=== PATIENT | female | born 1975 | race Caucasian/White ===

== ENCOUNTER → 2019-11-20 | Outpatient (CLI) | payer BC ==
[2019-11-20 15:21] VITALS: BP 136/87; PULSE 105; RESP 16; TEMP 99.1; BMI 39.3
[2019-11-20 17:06] LABS: HCT 45.8 % (34.0-46.0); HGB 14.9 gm/dL (11.4-16.0); MCH 28.8 pg (25.0-35.0); MCHC 32.6 g/dL (31.0-37.0); MCV 88.3 fL (80.0-100.0); Mean Platelet Volume 8.3; Platelet Count 321 k/uL (150-450); RBC 5.19 m/uL (3.80-5.40); RDW 12.7 % (11.5-15.5); WBC 11.9 k/uL (3.8-10.6)
[2019-11-21 00:57] LABS: Albumin 4.6 g/dL (3.80-4.90); Albumin/Globulin Ratio 2.19 (1.60-3.17); Anion Gap 9.6 mmol/L (4.00-12.00); BUN/Creat Ratio 21.43 Ratio (12.00-20.00); Carbon Dioxide 26.4 mmol/L (21.6-31.8); Globulin 2.1 g/dL (1.6-3.3); Non-African American GFR(CKD) 106.1 (60.0-200.0); Potassium 3.7 mmol/L (3.5-5.5); Total Bilirubin 0.3 mg/dL (0.3-1.2); Total Protein 6.7 g/dL (6.2-8.2)
[2019-11-21 01:08] LABS: Folate, Serum 8.9 ng/mL
--- NOTE | 2019-11-27 14:21 | P.HPBAR ---
Bariatric H&P - History & Physicial H&P Date: 11/20/19 History & Physicial: Visit/CC: initial visit Patient initial contact: Initial weight: 104.78 kg Initial weight in pounds: 231.00 Height: 5 ft 4.25 in Initial BMI: 39.3 Last weight: Current weight: 104.78 kg Current weight in pounds: 231.00 Current BMI: 39.3 [place] body weight (based on NIH guidelines): 54.998 kg Excess body weight loss: 0.0% The patient is a 44 year-old F who presents for Bariatric Assessment. Patient presents today for new patient consultation. She is morbidly obese. Her BMI is 40. She has had lifetime problems obesity Past Medical History Past Medical History: No Reported History History of Any Multi-Drug Resistant Organisms: None Reported Past Surgical History: Section, Tubal Ligation, Uterine Ablation Additional Past Surgical History / Comment(s): x1 (2004) Past Anesthesia/Blood Transfusion Reactions: No Reported Reaction Additional Past Anesthesia/Blood Transfusion Reaction / Comm: No blood transfusion to date Past Psychological History: ADD/ADHD, Depression Additional Psychological History / Comment(s): Takes Adderall 30mg and Prozac 40mg daily Smoking Status: Never smoker Past Alcohol Use History: None Reported Past Drug Use History: None Reported Surgical - Exam Vital Signs Temp Pulse Resp BP 99.1 F 105 H 16 136/87 11/20/19 15:17 11/20/19 15:17 11/20/19 15:17 11/20/19 15:17 - General well developed, well nourished, no distress - Eyes PERRL - ENT normal pinna - Neck no masses - Respiratory normal expansion - Cardiovascular Rhythm: regular - Abdomen Abdomen: soft, non tender Results - Labs 11/20/19 16:19 11/20/19 16:19 Bariatric Assessment & Plan Plan: Morbid obesity, BMI 39. We went over the risks and benefits of sleeve gastrectomy. I discussed the risk of possible gastric staple line disruption, bleeding or scarring. Patient was scheduled for EGD. She'll follow-up after this is performed. Bariatric Checklist Checklist: Plan: Checklist: EGD: 1. Hiatal hernia: 2. H. Pylori: HgbA1c: Vitamin D: Smoking: Never smoker Primary care physician referral: Mary Ann Psychiatry clearance: Cardiology clearance: Sleep study: Diet journal: VTE risk score: VTE risk level: Rehab needs at discharge:
== END | disposition home or self-care (01) ==
LOC: BARWHC3 14:50
PROVIDERS: ATTEND Surgery
DX: E66.01 Morbid (severe) obesity due to excess calories (principal); Z68.39 Body mass index [BMI] 39.0-39.9, adult; E44.0 Moderate protein-calorie malnutrition; Z98.51 Tubal ligation status; Z98.890 Other specified postprocedural states
CPT/HCPCS: 80053; 82306; 82607; 82746; 84425; 84443; 85027; 93005; 99201

== ENCOUNTER 2019-12-06 07:45 | Day surgery (SDC) | payer BC ==
[2019-12-05 11:34] VITALS: BMI 39.4
[~2019-12-06 07:45] MED LIST: LACTATED RINGERS 1,000 ML IV SCH; LIDOCAINE 1% 20 ML VIAL (10MG/ML) FOR IV START INTRADERMA PRN
[2019-12-06 08:25] VITALS: TEMP 97
[2019-12-06] MEDS ORDERED: PROPOFOL 10 MG/ML 20 ML VIAL IV ONE (09:14)
[2019-12-06] MEDS ORDERED: LIDOCAINE 1% INJ 10MG/ML (20 ML MDV) ONE (09:14)
--- NOTE | 2019-12-06 09:24 | P.GSHP ---
History of Present Illness H&P Date: 12/06/19 Chief Complaint: Morbid obesity, BMI 40 This a 44-year-old female who is undergoing workup for sleeve gastrectomy. Patient has had issues with morbid obesity. Her BMI is 40. She is also issues. With GERD. Past Medical History Past Medical History: No Reported History Additional Past Medical History / Comment(s): states irregular heart beat, back problems, Hx Uti's, migraines., elevated thyroid test-has not spoken with Dr. mondragon. History of Any Multi-Drug Resistant Organisms: None Reported Past Surgical History: Section, Tubal Ligation, Uterine Ablation Additional Past Surgical History / Comment(s): x1 (2004) Past Anesthesia/Blood Transfusion Reactions: No Reported Reaction, Motion Sickness Additional Past Anesthesia/Blood Transfusion Reaction / Comment(s): . Past Psychological History: ADD/ADHD, Anxiety, Depression Additional Psychological History / Comment(s): . Smoking Status: Never smoker Past Alcohol Use History: Rare Past Drug Use History: None Reported - Past Family History Mother Family Medical History: No Reported History Medications and Allergies Home Medications Medication Instructions Recorded Confirmed Type Dextroamphetamine/Amphetamine 30 mg PO QAM 09/10/15 12/06/19 History [Adderall] FLUoxetine HCL [PROzac] 40 mg PO DAILY 11/20/19 12/06/19 History Omeprazole [PriLOSEC] 40 mg PO DIRECTED PRN 11/20/19 12/06/19 History Acetaminophen [Tylenol] 650 mg PO DIRECTED PRN 12/05/19 12/06/19 History Dextroamphetamine/Amphetamine 30 mg PO PC-LUNCH PRN 12/05/19 12/06/19 History [Adderall] Allergies Allergy/AdvReac Type Severity Reaction Status Date / Time bupropion [From Contrave] Allergy Rash/Hives Verified 12/06/19 08:09 bupropion HCl Allergy Rash/Hives Verified 12/06/19 08:09 [From Wellbutrin] naltrexone [From Contrave] Allergy Rash/Hives Verified 12/06/19 08:09 Surgical - Exam Vital Signs Temp Pulse Resp BP Pulse Ox 97 F L 71 16 124/71 99 12/06/19 08:24 12/06/19 08:24 12/06/19 08:24 12/06/19 08:24 12/06/19 08:24 - General well developed, well nourished, no distress - Eyes PERRL - ENT normal pinna - Neck no masses - Respiratory normal expansion - Cardiovascular Rhythm: regular - Abdomen Abdomen: soft, non tender Assessment and Plan Assessment: GERD. We'll perform EGD.
--- NOTE | 2019-12-06 09:39 | P.OP ---
Date of Procedure: 12/06/19 Preoperative Diagnosis: Morbid obesity Postoperative Diagnosis: Antral gastritis Hiatal hernia Mild esophagitis Procedure(s) Performed: EGD Anesthesia: MAC Surgeon: Corey Campos Pathology: other (Antrum, esophagus) Condition: stable Disposition: PACU Description of Procedure: The patient's placed on the endoscopy table in the lateral position. She received IV sedation. The gastroscope placed oropharynx and passed in the esophagus and into the stomach. Scope was then placed through the pylorus. The first and second portion of the duodenum appeared normal. Scope was then brought back the antrum and this appeared minimally inflamed. Biopsies performed. Scope was unretroflexed and the remainder of the stomach appeared normal. There was a small hiatal hernia. The GE junction was at 28 cm. The distal esophagus appeared mildly inflamed a biopsies performed. The proximal esophagus appeared normal. Scope was then removed from the patient.
[2019-12-06 10:16] VITALS: BP 131/91; PULSE 64; RESP 18
== END 2019-12-06 10:49 | disposition home or self-care (01) ==
LOC: ORWHC2ENDO 07:45
PROVIDERS: ATTEND Surgery
DX: K21.0 Gastro-esophageal reflux disease with esophagitis (principal); K44.9 Diaphragmatic hernia without obstruction or gangrene; E66.01 Morbid (severe) obesity due to excess calories; Z68.41 Body mass index [BMI] 40.0-44.9, adult; G43.109 Migraine with aura, not intractable, without status migrainosus; Z87.440 Personal history of urinary (tract) infections; Z98.51 Tubal ligation status; Z98.890 Other specified postprocedural states; F90.9 Attention-deficit hyperactivity disorder, unspecified type; F41.9 Anxiety disorder, unspecified; F32.9 Major depressive disorder, single episode, unspecified; Z79.899 Other long term (current) drug therapy; Z88.8 Allergy status to other drugs, medicaments and biological substances
CPT/HCPCS: 81025; 88305; 43239; J2001; J2704

== ENCOUNTER → 2019-12-18 | Outpatient (CLI) | payer BC ==
[2019-12-18 16:10] VITALS: BP 145/90; PULSE 91; RESP 16; TEMP 98.4; BMI 39.5
--- NOTE | 2019-12-19 12:32 | P.HPBAR ---
Bariatric H&P - History & Physicial H&P Date: 12/18/19 History & Physicial: Visit/CC: EGD F/U Patient initial contact: Initial weight: 104.78 kg Initial weight in pounds: 231.00 Height: 5 ft 4.25 in Initial BMI: 39.3 Last weight: Current weight: 105.233 kg Current weight in pounds: 232.00 Current BMI: 39.5 [place] body weight (based on NIH guidelines): 54.998 kg Excess body weight loss: The patient is a 44 year-old F who presents for Bariatric Assessment. Patient presents today for presurgical consultation follow-up. She underwent recent EGD. Her weight has been stable. She's more obesity BMI 39. Past Medical History Past Medical History: No Reported History Additional Past Medical History / Comment(s): states irregular heart beat, back problems, Hx Uti's, migraines., elevated thyroid test-has not spoken with Dr. mondragon. History of Any Multi-Drug Resistant Organisms: None Reported Past Surgical History: Section, Tubal Ligation, Uterine Ablation Additional Past Surgical History / Comment(s): x1 (2004) Past Anesthesia/Blood Transfusion Reactions: No Reported Reaction, Motion Sickness Additional Past Anesthesia/Blood Transfusion Reaction / Comm: . Past Psychological History: ADD/ADHD, Anxiety, Depression Additional Psychological History / Comment(s): . Smoking Status: Never smoker Past Alcohol Use History: Rare Past Drug Use History: None Reported - Past Family History Mother Family Medical History: No Reported History Father Family Medical History: CVA/TIA, Myocardial Infarction ([place]) Surgical - Exam Vital Signs Temp Pulse Resp BP 98.4 F 91 16 145/90 12/18/19 16:08 12/18/19 16:08 12/18/19 16:08 12/18/19 16:08 - General well developed, well nourished, no distress - Eyes PERRL - ENT normal pinna - Neck no masses - Respiratory normal expansion - Cardiovascular Rhythm: regular - Abdomen Abdomen: soft, non tender Bariatric Assessment & Plan Plan: RBC, BMI 39. Patient has a good understanding of sleeve gastrectomy. Went over the risks and benefits of surgery were discussed staple line disruption bleeding or scarring. Went over risk of GERD. Patient will be scheduled for sleeve gastrectomy once her authorizations complete. Bariatric Checklist Checklist: Plan: Checklist: EGD: 1. Hiatal hernia: 2. H. Pylori: HgbA1c: Vitamin D: Smoking: Never smoker Primary care physician referral: Mary Ann Psychiatry clearance: Cardiology clearance: Sleep study: Diet journal: VTE risk score: VTE risk level: Rehab needs at discharge:
== END | disposition home or self-care (01) ==
LOC: BARWHC3 14:53
PROVIDERS: ATTEND Surgery
DX: Z48.816 Encounter for surgical aftercare following surgery on the genitourinary system (principal); Z98.890 Other specified postprocedural states
CPT/HCPCS: 99211

== ENCOUNTER → 2020-06-24 | Outpatient (CLI) | payer BC ==
[2020-06-24 12:53] VITALS: BMI 41.3
== END | disposition home or self-care (01) ==
LOC: BARWHC3 08:42
PROVIDERS: ATTEND Surgery
DX: E66.01 Morbid (severe) obesity due to excess calories (principal); Z71.3 Dietary counseling and surveillance; Z68.41 Body mass index [BMI] 40.0-44.9, adult
CPT/HCPCS: 97804

== ENCOUNTER → 2021-01-06 | Outpatient (CLI) | payer BC ==
[2021-01-06 15:21] LABS: Basophils # (A) 0.1 k/uL (0-0.2); Basophils % (A) 1 %; Eosinophils # (A) 0.3 k/uL (0-0.7); Eosinophils % (A) 5 %; HCT 45.1 % (34.0-46.0); HGB 15.6 gm/dL (11.4-16.0); Lymphocytes # (A) 1.5 k/uL (1.0-4.8); Lymphocytes % (A) 20 %; MCH 28.9 pg (25.0-35.0); MCHC 34.6 g/dL (31.0-37.0); MCV 83.6 fL (80.0-100.0); Mean Platelet Volume 8.1; Monocytes # (A) 0.6 k/uL (0-1.0); Monocytes % (A) 7 %; Neutrophils % (A) 66 %; Platelet Count 348 k/uL (150-450); RBC 5.39 m/uL (3.80-5.40); RDW 12.4 % (11.5-15.5); WBC 7.6 k/uL (3.8-10.6)
[2021-01-06 15:36] LABS: ALT 23 U/L (4-34); AST 23 U/L (14-36); African American GFR (CKD) >90 (>60 ml/min/1.73 sqM); Albumin 4.2 g/dL (3.5-5.0); Alkaline Phosphatase 65 U/L (38-126); Anion Gap 8 mmol/L; Blood Urea Nitrogen 14 mg/dL (7-17); Calcium 9.1 mg/dL (8.4-10.2); Carbon Dioxide 30 mmol/L (22-30); Chloride 100 mmol/L (98-107); Glucose 99 mg/dL (74-99); Non-African American GFR(CKD) 89 (>60 ml/min/1.73 sqM); Potassium 4.3 mmol/L (3.5-5.1); Sodium 138 mmol/L (137-145); Total Bilirubin 0.7 mg/dL (0.2-1.3); Total Protein 7.6 g/dL (6.3-8.2)
== END | disposition home or self-care (01) ==
LOC: LABPAT 14:17
PROVIDERS: ATTEND Surgery
DX: Z01.818 Encounter for other preprocedural examination (principal)
CPT/HCPCS: 36415; 80053; 85025; 93005

== ENCOUNTER → 2021-01-06 | Outpatient (CLI) | payer BC ==
[2021-01-06 14:12] VITALS: BP 134/91; PULSE 92; RESP 18; TEMP 98.5; BMI 39.1
--- NOTE | 2021-01-06 16:11 | P.HPBAR ---
Bariatric H&P - History & Physicial H&P Date: 01/06/21 History & Physicial: Visit/CC: presurgical visit Patient initial contact: Initial weight: 104.78 kg Initial weight in pounds: 231.00 Height: 5 ft 4.25 in Initial BMI: 39.3 Last weight: Current weight: 104.145 kg Current weight in pounds: 229.60 Current BMI: 39.1 [place] body weight (based on NIH guidelines): 54.998 kg Excess body weight loss: 1.2% The patient is a 45 year-old F who presents for Bariatric Assessment.patient presents for presurgical consultation. She is morbidly obese. Her BMI is 39. She is scheduled for sleeve gastrectomy next week. Past Medical History Past Medical History: No Reported History Additional Past Medical History / Comment(s): states irregular heart beat, back problems, Hx Uti's, migraines., elevated thyroid test-has not spoken with Dr. mondragon. History of Any Multi-Drug Resistant Organisms: None Reported Past Surgical History: Section, Tubal Ligation, Uterine Ablation Additional Past Surgical History / Comment(s): x1 (2004) Past Anesthesia/Blood Transfusion Reactions: No Reported Reaction, Motion Sickne ss Additional Past Anesthesia/Blood Transfusion Reaction / Comm: . Past Psychological History: ADD/ADHD, Anxiety, Depression Additional Psychological History / Comment(s): . Smoking Status: Unknown if ever smoked Past Alcohol Use History: Rare Past Drug Use History: None Reported - Past Family History Mother Family Medical History: No Reported History Father Family Medical History: CVA/TIA, Myocardial Infarction ([place]) Surgical - Exam Vital Signs Temp Pulse Resp BP 98.5 F 92 18 134/91 01/06/21 13:53 01/06/21 13:53 01/06/21 13:53 01/06/21 13:53 - General well developed, well nourished, no distress - Eyes PERRL - ENT normal pinna - Neck no masses - Respiratory normal expansion - Cardiovascular Rhythm: regular - Abdomen Abdomen: soft, non tender Bariatric Assessment & Plan Plan: morbid obesity patient will be scheduled for sleeve gastrectomy next week. She is Understanding of the sleeve gastrectomy she is aware of the risk of gastric injury such as perforation bleeding scar. Bariatric Checklist Checklist: Plan: Checklist: EGD: 1. Hiatal hernia: 2. H. Pylori: HgbA1c: Vitamin D: Smoking: Never smoker Primary care physician referral: Mary Ann Psychiatry clearance: Cardiology clearance: Sleep study: Diet journal: VTE risk score: VTE risk level: Rehab needs at discharge:
== END ==
LOC: BARWHC3 13:47
PROVIDERS: ATTEND Surgery
DX: E66.01 Morbid (severe) obesity due to excess calories (principal); F32.9 Major depressive disorder, single episode, unspecified; F90.9 Attention-deficit hyperactivity disorder, unspecified type; Z79.899 Other long term (current) drug therapy; Z68.39 Body mass index [BMI] 39.0-39.9, adult
CPT/HCPCS: 99211

== ENCOUNTER 2021-01-13 07:03 | Inpatient (IN) | payer BC ==
[~2021-01-13 07:03] MED LIST changes: +DEXAMETHASONE SOD PHOSPHATE 4 MG/ML 1 ML VIAL IV ONE; +HYDROmorphone 0.5 MG/0.5 ML SYRINGE IVP PRN; -LACTATED RINGERS 1,000 ML IV SCH; -LIDOCAINE 1% 20 ML VIAL (10MG/ML) FOR IV START INTRADERMA PRN; +MIDAZOLAM 2 MG/2 ML VIAL IV PRN; +ONDANSETRON 4 MG/2 ML VIAL IVP ONE
[2021-01-13] MEDS: LACTATED RINGERS 1,000 ML IV SCH (07:50)
[2021-01-13] MEDS ORDERED: LIDOCAINE 1% (10MG/ML) FOR IV START INTRADERMA ONE (07:50)
[2021-01-13] MEDS: ENOXAPARIN 30 MG/0.3 ML SYRINGE SQ PRN ×3 (07:51→09:00)
[2021-01-13] MEDS ORDERED: LIDOCAINE 1% INJ 10MG/ML (20 ML MDV) ONE ×3 (08:13→08:57)
--- NOTE | 2021-01-13 08:35 | P.GSHP ---
History of Present Illness H&P Date: 01/13/21 Chief Complaint: Morbid obesity This a 45-year-old female who presents today for laparoscopic sleeve gastrectomy. Patient's had issues with morbid obesity. Her BMI is 40. Patient weighs 104 kg. She is aware the risks of surgery including conversion to the open procedure and injury to the stomach liver spleen and issues with gastric sleeve disruption, bleeding and scarring. Past Medical History Past Medical History: Cancer, GERD/Reflux, Osteoarthritis (OA), Pneumonia Additional Past Medical History / Comment(s): states irregular heart beat, back problems, Hx Uti's, migraines., hiatal hernia, irregular bowel movents, hx gestational diabetic, cervical cancer, states she had postivie COVID test 12/20/20. states she did quarantine and is symptom free History of Any Multi-Drug Resistant Organisms: None Reported Past Surgical History: Section, Tubal Ligation, Uterine Ablation Additional Past Surgical History / Comment(s): .. Past Anesthesia/Blood Transfusion Reactions: Motion Sickness Additional Past Anesthesia/Blood Transfusion Reaction / Comment(s): . Smoking Status: Never smoker - Past Family History Mother Family Medical History: No Reported History Father Family Medical History: CVA/TIA, Myocardial Infarction ([place]) Medications and Allergies Home Medications Medication Instructions Recorded Confirmed Type Dextroamphetamine/Amphetamine 30 mg PO BID PRN 09/10/15 01/09/21 History [Adderall] Acetaminophen [Tylenol] 650 mg PO DIRECTED PRN 12/05/19 01/09/21 History Pantoprazole Sodium [Protonix] 40 mg PO DAILY PRN 01/06/21 01/09/21 History FLUoxetine HCL [PROzac] 20 mg PO DAILY 01/09/21 01/09/21 History Allergies Allergy/AdvReac Type Severity Reaction Status Date / Time bupropion [From Contrave] Allergy Rash/Hives Verified 01/09/21 13:59 bupropion HCl Allergy Rash/Hives Verified 01/09/21 13:59 [From Wellbutrin] naltrexone [From Contrave] Allergy Rash/Hives Verified 01/09/21 13:59 Surgical - Exam Vital Signs Temp Pulse Resp BP Pulse Ox 98.6 F 75 20 116/61 96 01/13/21 07:48 01/13/21 07:48 01/13/21 07:48 01/13/21 07:48 01/13/21 07:48 - General well developed, well nourished, no distress - Eyes PERRL - ENT normal pinna - Neck no masses - Respiratory normal expansion - Cardiovascular Rhythm: regular - Abdomen Abdomen: soft, non tender Assessment and Plan Assessment: Orbit obesity, BMI 39 We'll perform laparoscopic sleeve gastrectomy
[2021-01-13] MEDS ORDERED: ROPIVACAINE 5 MG/ML 30 ML VIAL ONE (08:57)
[2021-01-13] MEDS ORDERED: SUCCINYLCHOLINE CHLORIDE 100 MG/5 ML SYR IV ONE (08:57)
[2021-01-13] MEDS ORDERED: ROCURONIUM 10 MG/ML (5 ML VIAL) IV ONE (08:57)
[2021-01-13] MEDS ORDERED: KETOROLAC 15 MG/ML 1 ML VIAL ONE (08:57)
[2021-01-13] MEDS ORDERED: KETAMINE 10 MG/ML 20 ML VIAL ONE (08:57)
[2021-01-13] MEDS ORDERED: PROPOFOL 10 MG/ML 20 ML VIAL IV ONE (08:57)
[2021-01-13] MEDS ORDERED: NEOSTIGMINE 1 MG/ML 10 ML VIAL ONE (08:57)
[2021-01-13] MEDS ORDERED: fentaNYL (PF) 50 MCG/ML 2 ML AMP ONE (08:57)
[2021-01-13] MEDS ORDERED: GLYCOPYRROLATE 0.2 MG/ML 2 ML VIAL ONE (08:57)
[2021-01-13] MEDS ORDERED: BUPIVACAINE (PF) 0.25% 30 ML VIAL SQ ONE (09:33)
[2021-01-13] MEDS ORDERED: LACTATED RINGERS 1,000 ML IV ONE ×2 (10:11→13:14)
--- NOTE | 2021-01-13 10:18 | P.OP ---
Date of Procedure: 01/13/21 Preoperative Diagnosis: Morbid obesity, BMI 39 Postoperative Diagnosis: Morbid obesity, BMI 39 Procedure(s) Performed: Laparoscopic sleeve gastrectomy Anesthesia: SUE Surgeon: Corey Campos Estimated Blood Loss (ml): 5 Pathology: other (Stomach) Condition: stable Disposition: PACU Description of Procedure: The patient was placed on the operating room table in the supine position. She received general anesthesia and then was placed in dorsal lithotomy position. Her abdomen was prepped and draped in sterile fashion. The skin incision sites were anesthetized 1% local Xylocaine. And then the skin was incised with an 11 blade in the left lateral position. Using a blade less trocar under direct visualization the peritoneal cavity was entered. The abdomen was insufflated and then a 5 mm laparoscope was placed into the peritoneal cavity. A 5 mm trocar was placed in the right epigastric, and right lateral position. A 15 mm trocar was placed in the supra-umbilical position and another 5 mm trocar was placed in the left lateral position. The left lateral lobe of the liver was retracted. The stomach was visualized. The greater curvature of the stomach was then dissected using the Harmonic scissors. The dissection occurred approximately 5 cm from the pylorus to the level of the left fannie. There was no hiatal hernia seen. At this point a 40-Faroese bougie dilator was placed the oropharynx and passed into the esophagus and into the stomach by the EVP. The sleeve gastrectomy was performed by using the powered echelon stapler with a seam guard buttress material. Sequential firings of the stapler were performed. The gastric remnant was then brought out through the 15 mm trocar site. The dilator was withdrawn. And a orogastric tube was replaced into the stomach. The stomach was insufflated with 200 mL of methylene blue normal saline. There was no evidence of extravasation. The abdomen was irrigated there is no bleeding seen. The Hussain-Baldemar device was used to close the 15 mm trocar with 0 Vicryl. Skin was closed with interrupted 3-0 Monocryl sutures once the trochars withdrawn. Dermabond dressing was applied. Patient was sent to recovery in stable condition.
[2021-01-13] MEDS ORDERED: HYOSCYAMINE ORAL DROPS 1.875 MG/15 ML BOTTLE PO PRN (10:19)
[2021-01-13] MEDS ORDERED: SIMETHICONE 40 MG/0.6 ML DROPS 2,000 MG/30 ML BOTTLE PO PRN (10:19)
[2021-01-13] MEDS ORDERED: diphenhydrAMINE 50 MG/ML 1 ML VIAL IVP PRN (10:19)
[2021-01-13] MEDS ORDERED: ONDANSETRON 4 MG/2 ML VIAL IVP PRN (10:19)
[2021-01-13] MEDS ORDERED: HYDROcodone/APAP 15 ML SOLUTION PO PRN (10:19)
[2021-01-13] MEDS ORDERED: NALOXONE 0.4 MG/ML 1 ML VIAL IV PRN (10:19)
[2021-01-13] MEDS: fentaNYL (PF) 50 MCG/ML 2 ML AMP IVP ONE ×2 (10:55→11:03)
[2021-01-13] MEDS: ALBUTEROL NEBULIZED 2.5 MG/3 ML INHALATION SCH ×3 (13:52→20:05)
[2021-01-13] MEDS: 0.9% NACL WITH KCL 20 MEQ/L 1,000 ML IV SCH ×3 (14:03→20:44)
[2021-01-13] MEDS: KETOROLAC 15 MG/ML 1 ML VIAL IVP SCH ×3 (14:17→23:14)
--- NOTE | 2021-01-13 14:17 | P.ANPRN ---
Procedure Note - Anesthesia - Nerve Block Performed Bilateral Erector Spinae Single Time Out Performed: Yes Date of Procedure: 01/13/21 Procedure Start Time: 08:28 Procedure Stop Time: 08:37 Location of Patient: PreOp Indication: Acute Post-Operative Pain, Requested by Surgeon Sedation Type: Sedate with meaningful contact maintained Preparation: Sterile Prep Position: Prone Needle Types: Pajunk Needle Gauge: 21 Ultrasound used to visualize needle placement: Yes Ultrasound used to observe medication spread: Yes Blood Aspirated: No Pain Paresthesia on Injection Noted: No Resistance on Injection: Normal Image Stored and Saved: Yes Events: Uneventful and Well Tolerated (ropi .5% 15cc plus xylo 1% 15cc at t10)
--- NOTE | 2021-01-13 16:50 | P.HPIM ---
<Tato Clifton - Last Filed: 01/13/21 16:27> History of Present Illness H&P Date: 01/13/21 History of presenting illness: Patient is a very pleasant 45-year-old female with a past medical history of depression, anxiety, GERD, and morbid obesity. She is currently admitted under Gen. surgery team with Dr. Campos and we have been consulted for continued medical managment throughout her admission. Upon assessment, pt sitting up in bed. She is currently status post laparoscopic surgery where she received a gastrectomy sleeve. Patient reports mild abdominal discomfort, bloating, and gas. Patient states she has been ambulatory without any difficulties status post surgical procedure, she is NPO with the exception of ice chips and reports she has been tolerating ice chips without any difficulties, and has urinating also without any difficulties. Patient denies having a bowel movement status post surgical procedure and denies passing any flatus at this time. She denies having any headache, lightheadedness, dizziness, chest pain, palpitations, shortness of breath, dyspnea with exertion, nausea, vomiting, or experiencing any numbness/tingling/weakness in extremities. Review of systems: Pertinent positives and negatives as discussed in HPI, a complete review of systems was performed and all other systems are negative. Physical exam: General: non toxic, no distress, appears at stated age Derm: warm, dry Head: atraumatic, normocephalic, symmetric Eyes: EOMI, no lid lag, anicteric sclera Mouth: no lip lesion, mucus membranes moist Cardiovascular: S1S2 reg, no murmur, positive posterior tibial pulse bilateral, Lungs: CTA bilateral, no rhonchi, no rales , no accessory muscle use Abdominal: Obese abdomen soft and distended, postsurgical laparoscopic incisions intact, well approximated, no signs of dehiscence, infection, or drainage. Ext: No gross muscle atrophy, no edema, no contractures Neuro: GCS 15. CN II-XII grossly intact, no focal neuro deficits Psych: Alert, oriented, pleasant and appropriate affect Plan of care: Depression and anxiety -Continue daily Prozac 20 mg each morning. GERD -Protonix 40 mg daily Morbid obesity -BMI 39.4 kg/m -Patient is status post laparoscopic surgery for placement of gastrectomy sleeve. -Pt to be provided with continued education and encourage on healthy diet choices and the importance of exercise. Status post laparoscopic surgery with placement of gastrectomy sleeve -Management per primary admitting general surgery team with Dr. Campos. -Pain management, DVT prophylaxis, diet and bowel protocol per primary admitting team. -Patient currently on DVT prophylaxis with Lovenox 40 mg twice a day along with ARVIND cornelius and SCDs. Thank you for allowing us to participate in the care of this pleasant patient. Do not hesitate to contact us with questions. We will follow along with general surgery team. Someone can be reached from the [facility] hospitalist group all hours of the day at [phone] or via [employer]. Past Medical History Past Medical History: Cancer, GERD/Reflux, Osteoarthritis (OA), Pneumonia Additional Past Medical History / Comment(s): states irregular heart beat, back problems, Hx Uti's, migraines., hiatal hernia, irregular bowel movents, hx gestational diabetic, cervical cancer, states she had postivie COVID test 12/20/20. states she did quarantine and is symptom free History of Any Multi-Drug Resistant Organisms: None Reported Past Surgical History: Section, Tubal Ligation, Uterine Ablation Additional Past Surgical History / Comment(s): .. Past Anesthesia/Blood Transfusion Reactions: Motion Sickness Additional Past Anesthesia/Blood Transfusion Reaction / Comment(s): . Smoking Status: Never smoker - Past Family History Mother Family Medical History: No Reported History Father Family Medical History: CVA/TIA, Myocardial Infarction ([place]) Medications and Allergies Home Medications Medication Instructions Recorded Confirmed Type Dextroamphetamine/Amphetamine 30 mg PO BID PRN 09/10/15 01/09/21 History [Adderall] Acetaminophen [Tylenol] 650 mg PO DIRECTED PRN 12/05/19 01/09/21 History Pantoprazole Sodium [Protonix] 40 mg PO DAILY PRN 01/06/21 01/09/21 History FLUoxetine HCL [PROzac] 20 mg PO DAILY 01/09/21 01/09/21 History Allergies Allergy/AdvReac Type Severity Reaction Status Date / Time bupropion [From Contrave] Allergy Rash/Hives Verified 01/09/21 13:59 bupropion HCl Allergy Rash/Hives Verified 01/09/21 13:59 [From Wellbutrin] naltrexone [From Contrave] Allergy Rash/Hives Verified 01/09/21 13:59 Physical Exam Vitals: Vital Signs Temp Pulse Pulse Pulse Resp BP BP 01/13/21 15:36 80 16 01/13/21 15:27 81 16 01/13/21 15:14 93 16 105/75 01/13/21 13:30 71 18 109/68 01/13/21 13:01 63 14 106/61 01/13/21 12:30 72 16 103/64 01/13/21 12:00 71 16 98/64 01/13/21 11:46 68 16 107/69 01/13/21 11:00 73 16 111/63 01/13/21 10:45 83 16 110/60 01/13/21 10:26 96.8 F L 95 12 133/77 01/13/21 08:45 70 20 108/60 01/13/21 07:48 98.6 F 75 20 116/61 Pulse Ox 01/13/21 15:36 01/13/21 15:27 98 01/13/21 15:14 96 01/13/21 13:30 100 01/13/21 13:01 100 01/13/21 12:30 99 01/13/21 12:00 98 01/13/21 11:46 99 01/13/21 11:00 99 01/13/21 10:45 98 01/13/21 10:26 100 01/13/21 08:45 99 01/13/21 07:48 96 Intake and Output 01/13/21 01/13/21 01/13/21 06:59 14:59 22:59 Intake Total 2250 Output Total 10 Balance 2240 Intake: IV 2250 Output: Estimated Blood Loss 10 Other: Weight 104.1 kg Thrombosis Risk Factor Assmnt - Choose All That Apply Each Factor Represents 1 point: Age 41-60 years, Obesity (BMI >25) Each Risk Factor Represents 2 Points: Laparoscopic surgery, Major surgery Thrombosis Risk Factor Assessment Total Risk Factor Score: 6 Thrombosis Risk Factor Assessment Level: High Risk <Shavon Polanco - Last Filed: 01/13/21 17:10> Physical Exam Osteopathic Statement: *. No significant issues noted on an osteopathic structural exam other than those noted in the History and Physical/Consult. Vitals: Vital Signs Temp Pulse Pulse Pulse Resp BP BP 01/13/21 15:36 80 16 01/13/21 15:27 81 16 01/13/21 15:14 93 16 105/75 01/13/21 13:30 71 18 109/68 01/13/21 13:01 63 14 106/61 01/13/21 12:30 72 16 103/64 01/13/21 12:00 71 16 98/64 01/13/21 11:46 68 16 107/69 01/13/21 11:00 73 16 111/63 01/13/21 10:45 83 16 110/60 01/13/21 10:26 96.8 F L 95 12 133/77 01/13/21 08:45 70 20 108/60 01/13/21 07:48 98.6 F 75 20 116/61 Pulse Ox 01/13/21 15:36 01/13/21 15:27 98 01/13/21 15:14 96 01/13/21 13:30 100 01/13/21 13:01 100 01/13/21 12:30 99 01/13/21 12:00 98 01/13/21 11:46 99 01/13/21 11:00 99 01/13/21 10:45 98 01/13/21 10:26 100 01/13/21 08:45 99 01/13/21 07:48 96 Intake and Output 01/13/21 01/13/21 01/13/21 06:59 14:59 22:59 Intake Total 2250 Output Total 10 Balance 2240 Intake: IV 2250 Output: Estimated Blood Loss 10 Other: Weight 104.1 kg Assessment and Plan Assessment: discussed the care with Tato Clifton NP and reviewed the findings and plan as documented in the note above. I did not physically speak with or examine the patient on this date.
[2021-01-13] MEDS: ENOXAPARIN 40 MG/0.4 ML SYRINGE SQ SCH (20:04)
[2021-01-13] MEDS: HYDROmorphone 1 MG/ML 1 ML SYRINGE IVP PRN (23:45)
[2021-01-14] MEDS: LACTATED RINGERS 1,000 ML IV SCH (05:00)
[2021-01-14] MEDS: KETOROLAC 15 MG/ML 1 ML VIAL IVP SCH ×2 (05:38→11:56)
[2021-01-14] MEDS: 0.9% NACL WITH KCL 20 MEQ/L 1,000 ML IV SCH (05:42)
[2021-01-14] MEDS ORDERED: 1: MVI, ADULT NO.4 WITH VIT K 10 ML, THIAMINE 100 MG, FOLIC ACID 1 MG, POTASSIUM CHLORID IV SCH ×6 (08:00)
[2021-01-14] MEDS: ENOXAPARIN 40 MG/0.4 ML SYRINGE SQ SCH (08:53)
[2021-01-14] MEDS: HYDROmorphone 1 MG/ML 1 ML SYRINGE IVP PRN (08:55)
[2021-01-14] MEDS ORDERED: PANTOPRAZOLE 40 MG/10 ML VIAL IV SCH (09:00)
[2021-01-14] MEDS ORDERED: FLUoxetine HCL 20 MG CAP PO SCH (09:00)
[2021-01-14] MEDS: ALBUTEROL NEBULIZED 2.5 MG/3 ML INHALATION SCH ×2 (09:00→13:05)
--- NOTE | 2021-01-14 09:01 | FL ---
EXAMINATION TYPE: FL UGI DATE OF EXAM: 01/14/2021 CLINICAL HISTORY: Status post gastric sleeve Contrast: Omnipaque 350 50 mL The patient ingested contrast without difficulty or delay. Noted are postsurgical changes of gastric sleeve. There is no evidence for leak or obstruction. Contrast is noted within the duodenum. IMPRESSION: Post-surgical change of gastric sleeve without evidence for obstruction or leak at this point in time.
[2021-01-14 09:59] LABS: Basophils # (A) 0.04 X 10*3/uL (0.00-0.10); Basophils % (A) 0.3 %; Eosinophils # (A) 0.01 X 10*3/uL (0.04-0.35); Eosinophils % (A) 0.1 %; HCT 31.1 % (37.2-46.3); HGB 9.9 g/dL (12.0-15.0); Lymphocytes # (A) 1.51 X 10*3/uL (0.90-5.00); Lymphocytes % (A) 12.5 %; MCH 28.3 pg (27.0-32.0); MCHC 31.8 g/dL (32.0-37.0); MCV 88.9 fL (80.0-97.0); Mean Platelet Volume 12.2 fL (9.5-12.2); Monocytes # (A) 1.11 X 10*3/uL (0.20-1.00); Monocytes % (A) 9.2 %; Neutrophils # (A) 9.37 X 10*3/uL (1.80-7.70); Neutrophils % (A) 77.6 %; Platelet Count 316 X 10*3/uL (140-440); RDW 13.4 % (11.5-14.5); WBC 12.08 X 10*3/uL (4.50-10.00)
[2021-01-14 11:01] LABS: African American GFR (CKD) 122.1 (60.0-200.0); Anion Gap 7.2 mmol/L (4.00-12.00); Calcium 7.9 mg/dL (8.7-10.3); Carbon Dioxide 24.8 mmol/L (21.6-31.8); Magnesium 1.7 mg/dL (1.5-2.4); Non-African American GFR(CKD) 105.4 (60.0-200.0); Phosphorus 3.1 mg/dL (2.4-5.1); Potassium 4.4 mmol/L (3.5-5.5)
[2021-01-14 11:03] VITALS: BMI 39.4
[2021-01-14 11:55] VITALS: BP 110/66; PULSE 93; RESP 17; TEMP 98.6
--- NOTE | 2021-01-14 12:36 | P.DS ---
Providers Date of admission: 01/13/21 07:03 Expected date of discharge: 01/14/21 Attending physician: Corey Campos Consults: 01/13/21 10:19 Consult Physician Routine Consulting Provider: Shavon Polanco Consult Reason/Comments: Medical management Do you want consulting provider notified?: Yes Primary care physician: Stated None Hospital Course: Discharge diagnosis 1. Morbid obesity, BMI 39 status post laparoscopic sleeve gastrectomy 2. Hiatal hernia status post hiatal hernia repair Hospital course This is a 45-year-old female with a known history of morbid obesity. She is status post laparoscopic sleeve gastrectomy and hiatal hernia repair. She tolerated surgery well. Her upper GI shows no evidence of leak or obstruction. She's tolerating bariatric clear liquid diet. Her pain is controlled. She is ambulating. She's afebrile. She is stable for discharge. Please refer to chart for any further details. Physician Radio Survey Worker note has been reviewed by physician. Signing provider agrees with the documented findings, assessment, and plan of care. Patient Condition at Discharge: Stable Plan - Discharge Summary Discharge Rx Participant: Yes New Discharge Prescriptions: New bisacodyL [Dulcolax] 5 mg PO DAILY PRN #10 tablet.dr PRN Reason: Constipation Simethicone 40 mg/0.6 ml Drops [Mylicon Drops] 40 mg PO PCHS PRN #30 ml PRN Reason: Gas Ondansetron Odt [Zofran Odt] 4 mg PO Q8HR PRN #9 tab PRN Reason: Nausea HYDROcodone/APAP [[place] Elixir 7.5-325Mg/15Ml] 30 ml PO Q6HR PRN #240 ml PRN Reason: Pain Continue Dextroamphetamine/Amphetamine [Adderall] 30 mg PO BID PRN PRN Reason: ADHD Acetaminophen [Tylenol] 650 mg PO DIRECTED PRN PRN Reason: Headache FLUoxetine HCL [PROzac] 20 mg PO DAILY Changed Pantoprazole Sodium [Protonix] 40 mg PO DAILY #0 Discharge Medication List Dextroamphetamine/Amphetamine [Adderall] 30 mg PO BID PRN 09/10/15 [History] Acetaminophen [Tylenol] 650 mg PO DIRECTED PRN 12/05/19 [History] FLUoxetine HCL [PROzac] 20 mg PO DAILY 01/09/21 [History] HYDROcodone/APAP [[place] Elixir 7.5-325Mg/15Ml] 30 ml PO Q6HR PRN #240 ml 01/14/21 [Rx] Ondansetron Odt [Zofran Odt] 4 mg PO Q8HR PRN #9 tab 01/14/21 [Rx] Pantoprazole Sodium [Protonix] 40 mg PO DAILY #0 01/14/21 [Rx] Simethicone 40 mg/0.6 ml Drops [Mylicon Drops] 40 mg PO PCHS PRN #30 ml 01/14/21 [Rx] bisacodyL [Dulcolax] 5 mg PO DAILY PRN #10 tablet. 01/14/21 [Rx] Follow up Appointment(s[facility]Ref[facility] [place] [facility] - 01/17/21 10:00 am (Please follow up on 01/17/2021 at 1000 am for a nurse visit. ) Activity/Diet/Wound Care/Special Instructions: No driving while taking [place] No lifting over 10 pounds You may shower. No soaking or tub baths for 2 weeks Very light activity until you are reevaluated at your follow up appointment with your surgeon No straws or carbonated beverages Cut or crush all pills to the size of a tic tac Discharge Disposition: HOME SELF-CARE
--- NOTE | 2021-01-14 16:39 | P.PN ---
<Tato Clifton - Last Filed: 01/14/21 17:03> Subjective Progress Note Date: 01/14/21 Hospital course: Patient is a very pleasant 45-year-old female with a past medical history of d epression, anxiety, GERD, and morbid obesity. She is currently admitted under Gen. surgery team with Dr. Campos and we have been consulted for continued medical managment throughout her admission. Patient seen and fully evaluated this morning. She is postop day 1 and was ambulatory in the halls and doing well. She completed her swallow study this morning which showed postsurgical changes of gastric sleeve without evidence for obstruction or leak at this point in time. Patient's diet has been advanced to a clear liquid diet. She reports continued abdominal discomfort feeling of bloating and gas. She denies any episodes of nausea or vomiting. She has been ambulating up and down the halls without difficulties. Patient denies having any headache, lightheadedness, dizziness, chest pain or palpitations, shortness of breath or experiencing any numbness/tingling/weakness in her extremities. Physical exam: Vital signs reviewed this morning showing blood pressure 144/86, heart rate 81, respiratory rate 18, and SpO2 97% on room air. General: non toxic, no distress, appears at stated age Derm: warm, dry Head: atraumatic, normocephalic, symmetric Eyes: EOMI, no lid lag, anicteric sclera Mouth: no lip lesion, mucus membranes moist Cardiovascular: S1S2 reg, no murmur, positive posterior tibial pulse bilateral, Lungs: CTA bilateral, no rhonchi, no rales , no accessory muscle use Abdominal: Obese abdomen soft and distended, postsurgical laparoscopic incisions intact, well approximated, no signs of dehiscence, infection, or drainage. Ext: No gross muscle atrophy, no edema, no contractures Neuro: GCS 15. CN II-XII grossly intact, no focal neuro deficits Psych: Alert, oriented, pleasant and appropriate affect Plan of care: Depression and anxiety -Continue daily Prozac 20 mg each morning. GERD -Protonix 40 mg daily Morbid obesity -BMI 39.4 kg/m -Patient is status post laparoscopic surgery for placement of gastrectomy sleeve. -Pt to be provided with continued education and encourage on healthy diet choices and the importance of exercise. Status post laparoscopic surgery with placement of gastrectomy sleeve -Management per primary admitting general surgery team with Dr. Campos. Postoperative day 1. -Pain management, DVT prophylaxis, diet and bowel protocol per primary admitting team. -Patient currently on DVT prophylaxis with Lovenox 40 mg twice a day along with ARVIND cornelius and SCDs. Thank you for allowing us to participate in the care of this pleasant patient. Do not hesitate to contact us with questions. We will follow along with general surgery team. Someone can be reached from the [facility] hospitalist group all hours of the day at [phone] or via perfect serve. Objective - Vital Signs Vital signs: Vital Signs Temp 98.6 F 01/14/21 11:54 Pulse 93 01/14/21 11:54 Resp 17 01/14/21 11:54 BP 110/66 01/14/21 11:54 Pulse Ox 95 01/14/21 11:54 Intake & Output 01/13/21 01/14/21 01/14/21 18:59 06:59 18:59 Intake Total 2250 Output Total 10 90 Balance 2240 -90 Weight 104.1 kg 104.1 kg Intake: IV 2250 Output: Post Void Residual 90 Estimated Blood Loss 10 Other: Voiding Method Toilet Toilet Toilet - Labs CBC & Chem 7: 01/14/21 05:55 01/14/21 05:55 Labs: Abnormal Lab Results - Last 24 Hours (Table) 01/14/21 01/14/21 Range/Units 05:55 05:55 WBC 12.08 H (4.50-10.00) X 10*3/uL RBC 3.50 L (4.10-5.20) X 10*6/uL Hgb 9.9 L (12.0-15.0) g/dL Hct 31.1 L (37.2-46.3) % MCHC 31.8 L (32.0-37.0) g/dL Neutrophils # 9.37 H (1.80-7.70) X 10*3/uL Monocytes # 1.11 H (0.20-1.00) X 10*3/uL Eosinophils # 0.01 L (0.04-0.35) X 10*3/uL Calcium 7.9 L (8.7-10.3) mg/dL <Shavon Polanco - Last Filed: 01/14/21 21:37> Objective - Vital Signs Vital signs: Vital Signs Temp 98.6 F 01/14/21 11:54 Pulse 93 01/14/21 11:54 Resp 17 01/14/21 11:54 BP 110/66 01/14/21 11:54 Pulse Ox 95 01/14/21 11:54 Intake & Output 01/14/21 01/14/21 01/15/21 06:59 18:59 06:59 Output Total 90 Balance -90 Weight 104.1 kg Output: Post Void Residual 90 Other: Voiding Method Toilet Toilet - Labs CBC & Chem 7: 01/14/21 05:55 01/14/21 05:55 Labs: Abnormal Lab Results - Last 24 Hours (Table) 01/14/21 01/14/21 Range/Units 05:55 05:55 WBC 12.08 H (4.50-10.00) X 10*3/uL RBC 3.50 L (4.10-5.20) X 10*6/uL Hgb 9.9 L (12.0-15.0) g/dL Hct 31.1 L (37.2-46.3) % MCHC 31.8 L (32.0-37.0) g/dL Neutrophils # 9.37 H (1.80-7.70) X 10*3/uL Monocytes # 1.11 H (0.20-1.00) X 10*3/uL Eosinophils # 0.01 L (0.04-0.35) X 10*3/uL Calcium 7.9 L (8.7-10.3) mg/dL Assessment and Plan Assessment: I discussed the care with Tato Clifton NP and reviewed the findings and plan as documented in the note above. I did not physically speak with or examine the patient on this date.
== END 2021-01-14 15:14 | disposition home or self-care (01) | DRG 621 ==
LOC: 2ORMAIN 07:03 → 4SSUR 13:17 → 5NMEDONC 23:47
PROVIDERS: ADMIT Surgery; ATTEND Surgery
PROC: 0BQT4ZZ Repair Diaphragm, Percutaneous Endoscopic Approach (ICD-10-PCS; principal; 2021-01-13 08:40)
PROC: 0DB64Z3 Excision of Stomach, Percutaneous Endoscopic Approach, Vertical (ICD-10-PCS; principal; 2021-01-13 08:40)
DX: E66.01 Morbid (severe) obesity due to excess calories (principal); Z71.3 Dietary counseling and surveillance; Z68.39 Body mass index [BMI] 39.0-39.9, adult; K44.9 Diaphragmatic hernia without obstruction or gangrene; K21.9 Gastro-esophageal reflux disease without esophagitis; M19.90 Unspecified osteoarthritis, unspecified site; G43.909 Migraine, unspecified, not intractable, without status migrainosus; F32.9 Major depressive disorder, single episode, unspecified; F41.9 Anxiety disorder, unspecified; Z79.899 Other long term (current) drug therapy; Z86.16 Personal history of COVID-19; Z87.01 Personal history of pneumonia (recurrent); Z87.440 Personal history of urinary (tract) infections; Z85.41 Personal history of malignant neoplasm of cervix uteri; Z86.32 Personal history of gestational diabetes; Z98.51 Tubal ligation status; Z98.891 History of uterine scar from previous surgery; Z86.79 Personal history of other diseases of the circulatory system; Z98.890 Other specified postprocedural states; Z88.8 Allergy status to other drugs, medicaments and biological substances; Z82.49 Family history of ischemic heart disease and other diseases of the circulatory system; Z82.3 Family history of stroke
CPT/HCPCS: 64999; 74240; 76942; 80051; 82310; 82565; 83735; 84100; 84520; 85025; 88307; 94640; 94760; 94762

== ENCOUNTER → 2021-01-17 | Outpatient (CLI) | payer BC ==
[~2021-01-17] MED LIST changes: -DEXAMETHASONE SOD PHOSPHATE 4 MG/ML 1 ML VIAL IV ONE; -HYDROmorphone 0.5 MG/0.5 ML SYRINGE IVP PRN; -MIDAZOLAM 2 MG/2 ML VIAL IV PRN; -ONDANSETRON 4 MG/2 ML VIAL IVP ONE; +SODIUM CHLORIDE 0.9% 500 ML 500 ML in EMPTY BAG 1 BAG IV PRN
[2021-01-17 10:41] VITALS: BP 113/80; PULSE 88; RESP 16; TEMP 99.4
[2021-01-17] MEDS: SODIUM CHLORIDE 0.9% 1,000 ML IV SCH ×2 (10:41→11:42)
== END ==
LOC: PROCWHC3 10:23
PROVIDERS: ATTEND Surgery
DX: E86.0 Dehydration (principal)
CPT/HCPCS: 96360; 96361

== ENCOUNTER → 2021-01-17 | Outpatient (CLI) | payer BC ==
[2021-01-17 11:34] VITALS: BP 113/80; PULSE 88; RESP 18; TEMP 99.4; BMI 39.1
== END ==
LOC: BARWHC3 09:49
PROVIDERS: ATTEND Surgery
DX: E66.01 Morbid (severe) obesity due to excess calories (principal); Z68.39 Body mass index [BMI] 39.0-39.9, adult; Z98.84 Bariatric surgery status
CPT/HCPCS: 99211

== ENCOUNTER → 2021-01-20 | Outpatient (CLI) | payer BC ==
[2021-01-20 14:57] VITALS: BP 131/88; PULSE 106; TEMP 99.6; BMI 38.9
--- NOTE | 2021-02-18 12:53 | P.HPBAR ---
Bariatric H&P - History & Physicial H&P Date: 01/20/21 History & Physicial: Visit/CC: sleeve follow up Patient initial contact: Initial weight: 104.78 kg Initial weight in pounds: 231.00 Height: 5 ft 4.25 in Initial BMI: 39.3 Last weight: Current weight: 103.873 kg Current weight in pounds: 229.00 Current BMI: 38.9 [place] body weight (based on NIH guidelines): 54.998 kg Excess body weight loss: 1.8% The patient is a 45 year-old F who presents for Bariatric Assessment. Patient presents today for postoperative follow-up. She has no real complaints. Past Medical History Past Medical History: No Reported History Additional Past Medical History / Comment(s): states irregular heart beat, back problems, Hx Uti's, migraines., elevated thyroid test-has not spoken with Dr. mondragon. History of Any Multi-Drug Resistant Organisms: None Reported Past Surgical History: Bariatric Surgery, Section, Tubal Ligation, Uterine Ablation Additional Past Surgical History / Comment(s): x1 (2004) sleeve gastrectomy 01-13-21 Past Anesthesia/Blood Transfusion Reactions: No Reported Reaction, Motion Sickness Additional Past Anesthesia/Blood Transfusion Reaction / Comm: . Past Psychological History: ADD/ADHD, Anxiety, Depression Additional Psychological History / Comment(s): . Smoking Status: Never smoker Past Alcohol Use History: Rare Past Drug Use History: None Reported - Past Family History Mother Family Medical History: No Reported History Surgical - Exam Vital Signs Temp Pulse BP 99.6 F 106 H 131/88 01/20/21 14:54 01/20/21 14:54 01/20/21 14:54 - General well developed, well nourished, no distress - Eyes PERRL - ENT normal pinna - Neck no masses - Respiratory normal expansion - Cardiovascular Rhythm: regular - Abdomen Abdomen: soft, non tender Bariatric Assessment & Plan Plan: Status post sleeve gastrectomy. Patient is doing well. She will follow-up in 2 weeks. Bariatric Checklist Checklist: Plan: Checklist: EGD: 1. Hiatal hernia: 2. H. Pylori: HgbA1c: Vitamin D: Smoking: Never smoker Primary care physician referral: [facility] Psych[facility] clearance: Cardiology clearance: Sleep study: Diet journal: VTE risk score: VTE risk level: Rehab needs at discharge:
== END ==
LOC: BARWHC3 13:10
PROVIDERS: ATTEND Surgery
DX: Z09 Encounter for follow-up examination after completed treatment for conditions other than malignant neoplasm (principal); F90.9 Attention-deficit hyperactivity disorder, unspecified type; F32.9 Major depressive disorder, single episode, unspecified; F41.9 Anxiety disorder, unspecified; Z98.84 Bariatric surgery status; Z88.5 Allergy status to narcotic agent; Z88.8 Allergy status to other drugs, medicaments and biological substances
CPT/HCPCS: 97803; 99211

== ENCOUNTER → 2021-01-27 | Outpatient (CLI) | payer BC ==
[2021-01-27 14:19] VITALS: BP 123/83; PULSE 93; RESP 18; TEMP 98.6; BMI 36.8
--- NOTE | 2021-01-27 15:25 | P.HPBAR ---
Bariatric H&P - History & Physicial H&P Date: 01/27/21 History & Physicial: Visit/CC: follow up 2 week Patient initial contact: Initial weight: 104.78 kg Initial weight in pounds: 231.00 Height: 5 ft 4.25 in Initial BMI: 39.3 Last weight: Current weight: 97.976 kg Current weight in pounds: 216.00 Current BMI: 36.8 [place] body weight (based on NIH guidelines): 54.998 kg Excess body weight loss: 13.6% The patient is a 45 year-old F who presents for Bariatric Assessment. Patient presents today for postoperative visit patient did quite well. She is mild concentric GERD. She's lost 14 pounds since her last visit. Past Medical History Past Medical History: No Reported History Additional Past Medical History / Comment(s): states irregular heart beat, back problems, Hx Uti's, migraines., elevated thyroid test-has not spoken with Dr. mondragon. History of Any Multi-Drug Resistant Organisms: None Reported Past Surgical History: Bariatric Surgery, Section, Tubal Ligation, Uterine Ablation Additional Past Surgical History / Comment(s): x1 (2004) sleeve gastrectomy 01-13-21 Past Anesthesia/Blood Transfusion Reactions: No Reported Reaction, Motion Sickness Additional Past Anesthesia/Blood Transfusion Reaction / Comm: . Past Psychological History: ADD/ADHD, Anxiety, Depression Additional Psychological History / Comment(s): . Smoking Status: Never smoker Past Alcohol Use History: Rare Past Drug Use History: None Reported - Past Family History Mother Family Medical History: No Reported History Surgical - Exam Vital Signs Temp Pulse Resp BP 98.6 F 93 18 123/83 01/27/21 14:11 01/27/21 14:11 01/27/21 14:11 01/27/21 14:11 - General well developed, well nourished, no distress - Eyes PERRL - ENT normal pinna - Neck no masses - Respiratory normal expansion - Cardiovascular Rhythm: regular - Abdomen Abdomen: soft, non tender Bariatric Assessment & Plan Plan: Size for sleeve gastrectomy. Patient is doing quite well. Her GERD is minimal will be observed. She'll follow-up in 4 weeks. Bariatric Checklist Checklist: Plan: Checklist: EGD: 1. Hiatal hernia: 2. H. Pylori: HgbA1c: Vitamin D: Smoking: Never smoker Primary care physician referral: [facility] clearance: Cardiology clearance: Sleep study: Diet journal: VTE risk score: VTE risk level: Rehab needs at discharge:
== END ==
LOC: BARWHC3 13:48
PROVIDERS: ATTEND Surgery
DX: E66.01 Morbid (severe) obesity due to excess calories (principal); Z68.36 Body mass index [BMI] 36.0-36.9, adult; Z98.84 Bariatric surgery status; Z46.51 Encounter for fitting and adjustment of gastric lap band; F32.9 Major depressive disorder, single episode, unspecified
CPT/HCPCS: 99211

== ENCOUNTER → 2021-02-10 | Outpatient (CLI) | payer BC ==
[2021-02-10 14:42] VITALS: BP 123/80; PULSE 92; TEMP 98.3; BMI 35.6
--- NOTE | 2021-02-10 14:52 | P.HPBAR ---
Bariatric H&P - History & Physicial H&P Date: 02/10/21 History & Physicial: Visit/CC: one month follow up Patient initial contact: Initial weight: 104.78 kg Initial weight in pounds: 231.00 Height: 5 ft 4.25 in Initial BMI: 39.3 Last weight: Current weight: 94.801 kg Current weight in pounds: 209.00 Current BMI: 35.6 [place] body weight (based on NIH guidelines): 54.998 kg Excess body weight loss: 20.0% The patient is a 45 year-old F who presents for Bariatric Assessment. Patient p resents today for sleeve gastrectomy follow-up. Since was a mild GERD. She's doing well weight loss was Past Medical History Past Medical History: No Reported History Additional Past Medical History / Comment(s): states irregular heart beat, back problems, Hx Uti's, migraines., elevated thyroid test-has not spoken with Dr. mondragon. History of Any Multi-Drug Resistant Organisms: None Reported Past Surgical History: Bariatric Surgery, Section, Tubal Ligation, Uterine Ablation Additional Past Surgical History / Comment(s): x1 (2004) sleeve gastrectomy 01-13-21 Past Anesthesia/Blood Transfusion Reactions: No Reported Reaction, Motion Sickness Additional Past Anesthesia/Blood Transfusion Reaction / Comm: . Past Psychological History: ADD/ADHD, Anxiety, Depression Additional Psychological History / Comment(s): . Smoking Status: Never smoker Past Alcohol Use History: Rare Past Drug Use History: None Reported - Past Family History Mother Family Medical History: No Reported History Surgical - Exam Vital Signs Temp Pulse BP 98.3 F 92 123/80 02/10/21 14:39 02/10/21 14:39 02/10/21 14:39 - General well developed, well nourished, no distress - Eyes PERRL - Abdomen Abdomen: soft, non tender Bariatric Assessment & Plan Plan: Status post sleeve gastrectomy. Patient is doing quite well. Her GERD is minimal observed. Bariatric Checklist Checklist: Plan: Checklist: EGD: 1. Hiatal hernia: 2. H. Pylori: HgbA1c: Vitamin D: Smoking: Never smoker Primary care physician referral: [facility] Psychiatry clearance: Cardiology clearance: Sleep study: Diet journal: VTE risk score: VTE risk level: Rehab needs at discharge:
[2021-02-10 15:31] LABS: HGB 14.5 gm/dL (11.4-16.0); MCH 28.5 pg (25.0-35.0); MCV 86.2 fL (80.0-100.0); Mean Platelet Volume 10.7; Platelet Count 205 k/uL (150-450); RBC 5.11 m/uL (3.80-5.40); RDW 14.7 % (11.5-15.5)
[2021-02-10 21:50] LABS: % Iron Saturation 18.66 (12.00-45.00); African American GFR (CKD) 122.1 (60.0-200.0); Albumin 4.6 g/dL (3.80-4.90); Albumin/Globulin Ratio 1.64 (1.60-3.17); Anion Gap 13.4 mmol/L (4.00-12.00); BUN/Creat Ratio 11.43 Ratio (12.00-20.00); Calcium 9.5 mg/dL (8.7-10.3); Carbon Dioxide 25.6 mmol/L (21.6-31.8); Globulin 2.8 g/dL (1.6-3.3); Non-African American GFR(CKD) 105.4 (60.0-200.0); Potassium 3.7 mmol/L (3.5-5.5); Total Bilirubin 0.8 mg/dL (0.3-1.2); Total Protein 7.4 g/dL (6.2-8.2)
[2021-02-10 21:59] LABS: Ferritin 124.5 ng/mL (10.0-291.0)
[2021-02-10 22:00] LABS: Folate, Serum 8.1 ng/mL
[2021-02-11 12:23] LABS: Zinc, Serum 83 ug/dL (60-130)
[2021-02-12 06:47] LABS: Vit B1(Thiamine) 49 ug/L (38-122)
[2021-02-12 08:38] LABS: Vitamin A 21 ug/dL (38-106)
== END ==
LOC: BARWHC3 13:51
PROVIDERS: ATTEND Surgery
DX: Z09 Encounter for follow-up examination after completed treatment for conditions other than malignant neoplasm (principal); Z98.84 Bariatric surgery status; K21.9 Gastro-esophageal reflux disease without esophagitis; F90.9 Attention-deficit hyperactivity disorder, unspecified type; F41.9 Anxiety disorder, unspecified; F32.9 Major depressive disorder, single episode, unspecified
CPT/HCPCS: 80053; 82306; 82607; 82728; 82746; 83540; 83550; 83735; 84255; 84425; 84443; 84590; 84630; 85027; 97803; 99211

== ENCOUNTER → 2021-03-17 | Outpatient (CLI) | payer BC ==
[2021-03-17 14:51] VITALS: BP 121/83; PULSE 81; RESP 18; TEMP 98.1; BMI 32.8
--- NOTE | 2021-03-25 12:38 | P.HPBAR ---
Bariatric H&P - History & Physicial H&P Date: 03/17/21 History & Physicial: Visit/CC: follow up Patient initial contact: Initial weight: 104.78 kg Initial weight in pounds: 231.00 Height: 5 ft 4.25 in Initial BMI: 39.3 Last weight: Current weight: 87.543 kg Current weight in pounds: 193.00 Current BMI: 32.8 [place] body weight (based on NIH guidelines): 54.998 kg Excess body weight loss: 34.6% The patient is a 45 year-old F who presents for Bariatric Assessment. She presents today for patient presents today for follow-up. She's had some mild GERD. Past Medical History Past Medical History: No Reported History Additional Past Medical History / Comment(s): states irregular heart beat, back problems, Hx Uti's, migraines., elevated thyroid test-has not spoken with Dr. mondragon. History of Any Multi-Drug Resistant Organisms: None Reported Past Surgical History: Bariatric Surgery, Section, Tubal Ligation, Uterine Ablation Additional Past Surgical History / Comment(s): x1 (2004) sleeve gastrectomy 01-13-21 Past Anesthesia/Blood Transfusion Reactions: No Reported Reaction, Motion Sickness Additional Past Anesthesia/Blood Transfusion Reaction / Comm: . Past Psychological History: ADD/ADHD, Anxiety, Depression Additional Psychological History / Comment(s): . Smoking Status: Never smoker Past Alcohol Use History: Rare Past Drug Use History: None Reported - Past Family History Mother Family Medical History: No Reported History Surgical - Exam Vital Signs Temp Pulse Resp BP 98.1 F 81 18 121/83 03/17/21 14:23 03/17/21 14:23 03/17/21 14:23 03/17/21 14:23 - General well developed, well nourished, no distress - Eyes PERRL - ENT normal pinna - Neck no masses - Respiratory normal expansion - Cardiovascular Rhythm: regular - Abdomen Abdomen: soft, non tender Bariatric Assessment & Plan Plan: Status post sleeve gastrectomy.. Patient is minimal and will be observed. She'll follow-up in 3 months. Bariatric Checklist Checklist: Plan: Checklist: EGD: 1. Hiatal hernia: 2. H. Pylori: HgbA1c: Vitamin D: Smoking: Never smoker Primary care physician referral: [facility] Psychiat[facility] clearance: Cardiology clearance: Sleep study: Diet journal: VTE risk score: VTE risk level: Rehab needs at discharge:
== END | disposition home or self-care (01) ==
LOC: BARWHC3 13:48
PROVIDERS: ATTEND Surgery
DX: Z09 Encounter for follow-up examination after completed treatment for conditions other than malignant neoplasm (principal); K21.9 Gastro-esophageal reflux disease without esophagitis; Z98.84 Bariatric surgery status; F90.9 Attention-deficit hyperactivity disorder, unspecified type; F41.9 Anxiety disorder, unspecified; F32.9 Major depressive disorder, single episode, unspecified; Z88.8 Allergy status to other drugs, medicaments and biological substances
CPT/HCPCS: 99211

== ENCOUNTER → 2021-04-21 | Outpatient (CLI) | payer BC ==
[2021-04-21 14:37] VITALS: BP 123/80; PULSE 80; RESP 18; TEMP 98.1; BMI 30.7
--- NOTE | 2021-04-21 16:10 | P.HPBAR ---
Bariatric H&P - History & Physicial H&P Date: 04/21/21 History & Physicial: Visit/CC: follow up Patient initial contact: Initial weight: 104.78 kg Initial weight in pounds: 231.00 Height: 5 ft 4.25 in Initial BMI: 39.3 Last weight: Current weight: 81.647 kg Current weight in pounds: 180.00 Current BMI: 30.7 [place] body weight (based on NIH guidelines): 54.998 kg Excess body weight loss: 46.4% The patient is a 45 year-old F who presents for Bariatric Assessment. Patient presents today for sleeve gastrectomy fall. She is doing quite well with her weight loss. She has some mild GERD. Past Medical History Past Medical History: No Reported History Additional Past Medical History / Comment(s): states irregular heart beat, back problems, Hx Uti's, migraines., elevated thyroid test-has not spoken with Dr. mondragon. History of Any Multi-Drug Resistant Organisms: None Reported Past Surgical History: Bariatric Surgery, Section, Tubal Ligation, Uterine Ablation Additional Past Surgical History / Comment(s): x1 (2004) sleeve gastrectomy 01-13-21 Past Anesthesia/Blood Transfusion Reactions: No Reported Reaction, Motion Sickness Additional Past Anesthesia/Blood Transfusion Reaction / Comm: . Past Psychological History: ADD/ADHD, Anxiety, Depression Additional Psychological History / Comment(s): . Smoking Status: Never smoker Past Alcohol Use History: Rare Past Drug Use History: None Reported - Past Family History Mother Family Medical History: No Reported History Surgical - Exam Vital Signs Temp Pulse Resp BP 98.1 F 80 18 123/80 04/21/21 14:33 04/21/21 14:33 04/21/21 14:33 04/21/21 14:33 - General well developed, well nourished, no distress - Eyes PERRL - ENT normal pinna - Neck no masses - Respiratory normal expansion - Cardiovascular Rhythm: regular - Abdomen Abdomen: soft, non tender Bariatric Assessment & Plan Plan: Hospital sleeve gastrectomy. Patient's. His minimal will be observed. Bariatric Checklist Checklist: Plan: Checklist: EGD: 1. Hiatal hernia: 2. H. Pylori: HgbA1c: Vitamin D: Smoking: Never smoker Primary care physician referral: [facility] Psych[facility] clearance: Cardiology clearance: Sleep study: Diet journal: VTE risk score: VTE risk level: Rehab needs at discharge:
== END | disposition home or self-care (01) ==
LOC: BARWHC3 13:51
PROVIDERS: ATTEND Surgery
DX: E66.01 Morbid (severe) obesity due to excess calories (principal); Z68.30 Body mass index [BMI] 30.0-30.9, adult
CPT/HCPCS: 99211

== ENCOUNTER → 2021-05-26 | Outpatient (CLI) | payer BC ==
[2021-05-26 14:09] VITALS: BP 123/79; PULSE 94; RESP 18; TEMP 98.3; BMI 27.9
--- NOTE | 2021-07-08 10:31 | P.HPBAR ---
Bariatric H&P - History & Physicial H&P Date: 05/26/21 History & Physicial: Visit/CC: follow up Patient initial contact: Initial weight: 104.78 kg Initial weight in pounds: 231.00 Height: 5 ft 4.25 in Initial BMI: 39.3 Last weight: Current weight: 74.389 kg Current weight in pounds: 164.00 Current BMI: 27.9 [place] body weight (based on NIH guidelines): 54.998 kg Excess body weight loss: 61.0% The patient is a 45 year-old F who presents for Bariatric Assessment. Patient presents today for sleeve follow-up. She's had some mild GERD. She denies any significant dysphagia. She is an excellent weight loss. Past Medical History Past Medical History: No Reported History Additional Past Medical History / Comment(s): states irregular heart beat, back problems, Hx Uti's, migraines., elevated thyroid test-has not spoken with Dr. mondragon. History of Any Multi-Drug Resistant Organisms: None Reported Past Surgical History: Bariatric Surgery, Section, Tubal Ligation, Uterine Ablation Additional Past Surgical History / Comment(s): x1 (2004) sleeve gastrectomy 01-13-21 Past Anesthesia/Blood Transfusion Reactions: No Reported Reaction, Motion Sickness Additional Past Anesthesia/Blood Transfusion Reaction / Comm: . Past Psychological History: ADD/ADHD, Anxiety, Depression Additional Psychological History / Comment(s): . Smoking Status: Never smoker Past Alcohol Use History: Rare Past Drug Use History: None Reported - Past Family History Mother Family Medical History: No Reported History Surgical - Exam Vital Signs Temp Pulse Resp BP 98.3 F 94 18 123/79 05/26/21 14:06 05/26/21 14:06 05/26/21 14:06 05/26/21 14:06 - General well developed, well nourished, no distress - Eyes PERRL - ENT normal pinna - Neck no masses - Respiratory normal expansion - Cardiovascular Rhythm: regular - Abdomen Abdomen: soft, non tender Bariatric Assessment & Plan Plan: Status post sleeve . Patient's girth is minimal will be observed. She'll follow-up in 4 weeks. Bariatric Checklist Checklist: Plan: Checklist: EGD: 1. Hiatal hernia: 2. H. Pylori: HgbA1c: Vitamin D: Smoking: Never smoker Primary care physician referral: [facility] Psychiat[facility] clearance: Cardiology clearance: Sleep study: Diet journal: VTE risk score: VTE risk level: Rehab needs at discharge:
== END | disposition home or self-care (01) ==
LOC: BARWHC3 13:47
PROVIDERS: ATTEND Surgery
DX: E66.09 Other obesity due to excess calories (principal); Z68.27 Body mass index [BMI] 27.0-27.9, adult
CPT/HCPCS: 99211

== ENCOUNTER → 2021-06-17 | Outpatient (CLI) | payer BC ==
[2021-06-18 00:53] LABS: T4, Free (Free Thyroxine) 1.1 ng/dL (0.80-1.80)
== END | disposition home or self-care (01) ==
LOC: LABWHC1 13:51
PROVIDERS: ATTEND Internal Medicine
DX: E03.9 Hypothyroidism, unspecified (principal)
CPT/HCPCS: 36415; 84439; 84443; 84481

== ENCOUNTER → 2021-07-07 | Outpatient (CLI) | payer BC ==
[2021-07-07 14:07] VITALS: BP 133/87; PULSE 97; RESP 18; TEMP 98.2; BMI 26.5
--- NOTE | 2021-07-07 14:19 | P.HPBAR ---
Bariatric H&P - History & Physicial H&P Date: 07/07/21 History & Physicial: Visit/CC: follow up Patient initial contact: Initial weight: 104.78 kg Initial weight in pounds: 231.00 Height: 5 ft 4.25 in Initial BMI: 39.3 Last weight: Current weight: 70.76 kg Current weight in pounds: 156.00 Current BMI: 26.5 [place] body weight (based on NIH guidelines): 54.998 kg Excess body weight loss: 68.3% The patient is a 45 year-old F who presents for Bariatric Assessment. Patient presents today for bariatric follow-up. She is doing quite well. She's had some minimal GERD. She is an excellent weight loss. Past Medical History Past Medical History: No Reported History Additional Past Medical History / Comment(s): states irregular heart beat, back problems, Hx Uti's, migraines., elevated thyroid test-has not spoken with Dr. mondragon. History of Any Multi-Drug Resistant Organisms: None Reported Past Surgical History: Bariatric Surgery, Section, Tubal Ligation, U terine Ablation Additional Past Surgical History / Comment(s): x1 (2004) sleeve gastrectomy 01-13-21 Past Anesthesia/Blood Transfusion Reactions: No Reported Reaction, Motion Sickness Additional Past Anesthesia/Blood Transfusion Reaction / Comm: . Past Psychological History: ADD/ADHD, Anxiety, Depression Additional Psychological History / Comment(s): . Smoking Status: Never smoker Past Alcohol Use History: Rare Past Drug Use History: None Reported - Past Family History Mother Family Medical History: No Reported History Surgical - Exam Vital Signs Temp Pulse Resp BP 98.2 F 97 18 133/87 07/07/21 14:04 07/07/21 14:04 07/07/21 14:04 07/07/21 14:04 - General well developed, well nourished, no distress - Eyes PERRL - ENT normal pinna - Neck no masses - Respiratory normal expansion - Cardiovascular Rhythm: regular - Abdomen Abdomen: soft, non tender Bariatric Assessment & Plan Plan: Status post sleeve gastrectomy. Patient is minimal reserve. She'll follow-up in one. Month Bariatric Checklist Checklist: Plan: Checklist: EGD: 1. Hiatal hernia: 2. H. Pylori: HgbA1c: Vitamin D: Smoking: Never smoker Primary care physician referral: [facility] Psych[facility] clearance: Cardiology clearance: Sleep study: Diet journal: VTE risk score: VTE risk level: Rehab needs at discharge:
== END | disposition home or self-care (01) ==
LOC: BARWHC3 13:48
PROVIDERS: ATTEND Surgery
DX: Z09 Encounter for follow-up examination after completed treatment for conditions other than malignant neoplasm (principal); Z98.890 Other specified postprocedural states
CPT/HCPCS: 99211